=== PATIENT | female | born 1955 | race Caucasian/White ===

== ENCOUNTER 2016-07-25 09:28 | Emergency (ER) | payer BC ==
[~2016-07-25] VITALS: Ht 147.3 cm; Wt 60.3 kg
[~2016-07-25 09:28] MED LIST: ASPIRIN81 M2 PO; CALCIUM ACETAT667 M2 PO; CLONIDINE HCL0.1 MG PO; COREG12.5 M1 PO; COREG25 M1 PO; DIOVAN160 MG PO; METOPROLOL SUCC50 MG PO; NEPHRO-VITE,1 TABLET PO; NORVASC10 MG PO; PROCRIT40000 UNI1 IV; SYNTHROID75 MCG PO; TEKTURNA150 MG PO; ZEMPLAR 22 MCG/1 ML IV; ZETIA10 MG PO
[2016-07-25 10:31] LABS: EOSINOPHIL (%) 1.2 % (0-5); EOSINOPHIL COUNT 0.1 K/uL (0-0.3); IMMATURE GRANULOCYTE (%) 0.4 % (0.0-0.7); INSTRUMENT ABS NEUTROPHIL CT 6.7 K/uL; LYMPHOCYTE COUNT 0.7 K/uL (1.0-2.8); MCH 32.2 PG (29.0-34.0); MCHC 30.8 G/DL (30.0-36.0); MCV 104.7 FL (83-99); MONOCYTE (%) 7.2 % (3-12); MONOCYTE COUNT 0.6 K/uL (0-0.8); NEUTROPHIL (%) 82.6 % (45-76); NEUTROPHIL COUNT 6.7 K/uL (1.8-6.4); PLATELET COUNT 174 K/uL (156-360); RBC DIS.WIDTH-CV 17.2 % (11.8-14.6); RBC DIS.WIDTH-SD 65.8 % (39-53); RED BLOOD COUNT 3.63 M/uL (3.80-5.20); WHITE BLOOD COUNT 8.2 K/uL (4.1-10.2)
[2016-07-25 11:14] LABS: ANION GAP 12 MEQ/L (2-14); CHLORIDE 93 MEQ/L (99-109); POTASSIUM 4.4 MEQ/L (3.7-5.4); SAMPLE HEMOLYSIS CHECK 0; SAMPLE ICTERIC CHECK 0; SAMPLE LIPEMIA CHECK 0; SODIUM 137 MEQ/L (136-147)
[2016-07-25 11:19] LABS: GFR ESTIMATE (CALCULATED) 6 mL/min/; GLUCOSE 96 mg/dL (70-99); UREA NITROGEN (BUN) 42 mg/dL (9-23)
[2016-07-25] MEDS ORDERED: FLAGYL500 MG PO (13:59)
[2016-07-25] MEDS ORDERED: CIPRO500 MG PO (13:59)
[2016-07-25 14:16] VITALS: BP 91/65
== END 2016-07-25 14:45 | disposition home or self-care (01) ==
LOC: EME 09:28
PROVIDERS: Emergency Medicine
DX: K57.32 Diverticulitis of large intestine without perforation or abscess without bleeding (principal); I12.0 Hypertensive chronic kidney disease with stage 5 chronic kidney disease or end stage renal disease; N18.6 End stage renal disease; Z99.2 Dependence on renal dialysis
CPT/HCPCS: 74176; 80048; 81003; 85025; 99281; 99284

== ENCOUNTER 2016-12-02 08:00 | Day surgery (SDC) | payer OTHER, BC ==
[~2016-12-02] VITALS: Ht 147.3 cm; Wt 59.0 kg
[~2016-12-02 08:00] MED LIST changes: +CIPRO500 MG PO; +CRESTOR5 MG PO; +FLAGYL500 MG PO
[2016-12-02 08:36] LABS: HEMATOCRIT 42.8 % (36.0-46.0); MCHC 31.1 G/DL (30.0-36.0); MCV 102.9 FL (83-99); MEAN PLAT.VOLUME 10.5 uM^3 (9.5-12.4); PLATELET COUNT 180 K/uL (156-360); RBC DIS.WIDTH-CV 16.7 % (11.8-14.6); RBC DIS.WIDTH-SD 62.5 % (39-53); RED BLOOD COUNT 4.16 M/uL (3.80-5.20); WHITE BLOOD COUNT 4.3 K/uL (4.1-10.2)
[2016-12-02 08:39] VITALS: BP 102/64
[2016-12-02 09:07] LABS: ANION GAP 14 MEQ/L (2-14); CHLORIDE 96 MEQ/L (99-109); GFR ESTIMATE (CALCULATED) 9 mL/min/; GLUCOSE 74 mg/dL (70-99); SAMPLE HEMOLYSIS CHECK 0; SAMPLE ICTERIC CHECK 0; SAMPLE LIPEMIA CHECK 0; SODIUM 143 MEQ/L (136-147); UREA NITROGEN (BUN) 31 mg/dL (9-23)
[2016-12-02 11:45] VITALS: BP 94/62
[2016-12-02 12:45] VITALS: BP 96/52
[2016-12-02 13:00] VITALS: BP 84/58
[2016-12-02 13:15] VITALS: BP 98/60
== END 2016-12-02 13:20 | disposition home or self-care (01) ==
LOC: SDC 08:00
PROVIDERS: Surgery
DX: T82.858A Stenosis of other vascular prosthetic devices, implants and grafts, initial encounter (principal); I12.0 Hypertensive chronic kidney disease with stage 5 chronic kidney disease or end stage renal disease; N18.6 End stage renal disease; Z99.2 Dependence on renal dialysis; D63.1 Anemia in chronic kidney disease; E78.4 Other hyperlipidemia; E03.9 Hypothyroidism, unspecified; Z82.49 Family history of ischemic heart disease and other diseases of the circulatory system; Z84.1 Family history of disorders of kidney and ureter
CPT/HCPCS: 80048; 85027; C1725; C1769; C1894; J0690; J1644; J2250; J3010

== ENCOUNTER 2017-10-01 19:02 | Emergency (ER) | payer OTHER, BC ==
[~2017-10-01] VITALS: Ht 147.3 cm; Wt 62.2 kg
[2017-10-01 21:10] VITALS: BP 83/59
== END 2017-10-01 21:11 | disposition home or self-care (01) ==
LOC: EME 19:02 → RME 19:02
DX: M79.661 Pain in right lower leg (principal); M79.89 Other specified soft tissue disorders; M71.21 Synovial cyst of popliteal space [Baker], right knee; I25.2 Old myocardial infarction; I13.2 Hypertensive heart and chronic kidney disease with heart failure and with stage 5 chronic kidney disease, or end stage renal disease; I50.9 Heart failure, unspecified; Z99.2 Dependence on renal dialysis
CPT/HCPCS: 93971; 99281; 99284